=== PATIENT | female | born 1985 | race Caucasian/White ===

== ENCOUNTER 2023-11-11 15:03 | Outpatient (OUT) | payer OTHER, SELFPAY ==
--- NOTE | 2023-11-11 | XR_ITS ---
The [address] [address] Patient Name: YULISA RG MRN: [id number] date: 1985 Sex: F Assigned Patient Location: [facility] Current Patient Location: [facility] Accession/Order Number: [id number] Exam Date: 11/11/2023 15:55 Report Date: 11/11/2023 16:53 At the request of: NON-STAFF PHYSICIAN Procedure: XR hand RT min 3V EXAMINATION: XR hand RT min 3V, , 11/11/2023 3:55 PM EDT INDICATION: Right 3rd digit pain HISTORY: Ordering Provider Reason for Exam: Right 3rd digit pain Technologist Note: Additional: COMPARISON: None. TECHNIQUE: Right hand x-ray: 3 view(s). FINDINGS: No acute fracture. Joint alignment is anatomic. Joint spaces are preserved. Soft tissues are within normal limits. XR/XR hand RT min 3V IMPRESSION: No acute fracture or traumatic malalignment. Electronically authenticated by: LOPEZ CARNEY Date: 11/11/2023 16:53
== END 2023-11-11 15:04 | disposition home or self-care (01) ==
LOC: RAD 15:09
PROVIDERS: PCP Family Medicine
DX: M79.644 Pain in right finger(s) (principal)
CPT/HCPCS: 73130